=== PATIENT | female | born 1980 | race Caucasian/White ===

== ENCOUNTER 2022-08-28 17:54 | Emergency (ER) | payer MEDICAID ==
[~2022-08-28] VITALS: Ht 152.4 cm; Wt 45.4 kg
--- NOTE | 2022-08-28 18:05 | NUR ---
[id number] FOR WITNESSED SEIZURE LASTING APPROX 1 MINUTE BG 72 ON SCENE. PLACED IN BED, AAOX4, BREATHING EVEN AND UNLABORED SATURATING AT 97%RA.
--- NOTE | 2022-08-28 18:06 | NUR ---
AT BEDSIDE FOR EVAL.
--- NOTE | 2022-08-28 18:15 | NUR ---
BLOOD DRAWN AND SENT TO LAB
[2022-08-28 18:22] LABS: BASOPHILS # (AUTO) 0.1 K/uL (0.0-0.2); EOSINOPHILS % (AUTO) 9.2 % (0.0-6.0); HEMATOCRIT 31 % (33-45); LYMPHOCYTES # (AUTO) 2.6 K/uL (0.8-4.8); LYMPHOCYTES % (AUTO) 38.5 % (20.0-44.0); MEAN CORPUSCULAR HGB CONC 32 g/dl (31.0-36.0); MEAN CORPUSCULAR VOLUME 77 fL (82-100); MONOCYTES # (AUTO) 0.7 K/uL (0.1-1.30); MONOCYTES % (AUTO) 10.2 % (2.0-12.0); NEUTROPHILS # (AUTO) 2.8 K/uL (1.8-8.9); NEUTROPHILS % (AUTO) 41.1 % (43.0-81.0); PLATELET COUNT (AUTO) 235 K/uL (150-450); RED BLOOD CELL COUNT(AUTO) 4.07 MIL/uL (4.0-5.2); WHITE BLOOD COUNT (AUTO) 6.8 K/uL (4.3-11.0)
[2022-08-28 18:32] LABS: CALCIUM, SERUM 9.3 mg/dL (8.5-10.1); CARBON DIOXIDE 24 mmol/L (21-32); CHLORIDE 99 mmol/L (98-107); CREATININE 1.1 mg/dL (0.6-1.3); GLUCOSE 84 mg/dL (74-106); POTASSIUM 4.1 mmol/L (3.5-5.1); SODIUM SERUM 136 mmol/L (136-145); UREA NITROGEN, BLOOD 10 mg/dL (7-18)
[2022-08-28 18:42] LABS: ALANINE AMINOTRANSFERASE 37 U/L (12-78); ALCOHOL, BLOOD < 3 mg/dL (0-0); ALKALINE PHOSPHATASE 75 U/L (46-116); ASPARTATE AMINOTRANSFERASE 33 U/L (15-37); BILIRUBIN,DIRECT 0.1 mg/dL (0.0-0.2); BILIRUBIN,TOTAL 0.2 mg/dL (0.2-1.0); TOTAL PROTEIN, SERUM 7.4 g/dL (6.4-8.2)
--- NOTE | 2022-08-28 18:50 | NUR ---
URINE SAMPLE SENT TO LAB
--- NOTE | 2022-08-28 18:56 | NUR ---
PATIENT TAKEN TO CT VIA [facility]
--- NOTE | 2022-08-28 20:34 | NUR ---
SWAB FOR COVID19 SEN TO LAB
--- NOTE | 2022-08-28 21:57 | NUR ---
IV removed. Catheter intact and site benign. Pressure and 4x4 applied to site. No bleeding noted.Patient discharged to home in stable condition. Written and verbal after care instructions given. Patient verbalizes understanding of instruction.
[2022-08-28 22:08] VITALS: BP 120/70
== END 2022-08-28 21:57 | disposition home or self-care (01) ==
LOC: ER 18:32
DX: R56.9 Unspecified convulsions (principal); Z88.0 Allergy status to penicillin; Z60.2 Problems related to living alone; Z20.822 Contact with and (suspected) exposure to COVID-19
CPT/HCPCS: 99284; 93005; 70450; 85025; 80048; 80076; 84703; 36415; 87081; 87426; 80320; 80307; C9803; G0480